=== PATIENT | female | born 1965 | race Two or more races ===

== ENCOUNTER 2018-01-06 12:42 | Outpatient (CLI) | payer MEDICAID, BC ==
--- NOTE | 2018-01-06 13:59 | Diagnostic Imaging Report ---
Indication: Dyspnea Comparison: None 2 views of the chest obtained. Findings: Cardiomediastinal silhouette and pulmonary vascularity are within normal limits for age. The diaphragmatic contour is smooth and costophrenic angles are sharp. No pleural effusions are identified. The bones are unremarkable. Impression: No acute disease
== END 2018-01-06 14:42 | disposition home or self-care (01) ==
LOC: RAD 12:42
DX: Z01.818 Encounter for other preprocedural examination (principal); R05 Cough
CPT/HCPCS: 71046